=== PATIENT | female | born 1990 ===

== ENCOUNTER → 2018-11-19 | Outpatient (CLI) | payer OTHER ==
[~2018-11-19] MED LIST: Bactrim Ds Tab1 EACH PO; Bentyl20 MG PO; EXPECTA PRENAT1 EACH; IBUP800 PO
== END | disposition home or self-care (01) ==
LOC: LAB 09:36 → LAB SHORT 09:36
DX: Z34.80 Encounter for supervision of other normal pregnancy, unspecified trimester (principal)
CPT/HCPCS: 87081; 87147; 87184; 87653

== ENCOUNTER 2018-12-10 08:04 | Inpatient (IN) | payer OTHER ==
[~2018-12-10] VITALS: Ht 160 cm; Wt 118.8 kg
[~2018-12-10 08:04] MED LIST changes: -EXPECTA PRENAT1 EACH; -IBUP800 PO
[2018-12-10] MEDS ORDERED: EXPECTA PRENAT1 EACH (09:14)
[2018-12-10 09:15] LABS: BASOPHILS ABSOLUTE AUTO 0.02 K/mm3 (0.00-0.23); BASOPHILS PERCENT AUTO 0 % (0-2); EOSINOPHILS ABSOLUTE AUTO 0.06 K/mm3 (0.00-0.68); EOSINOPHILS PERCENT AUTO 1 % (0-6); Hematocrit 36.6 % (33.0-51.0); Hemoglobin 11.7 g/dL (11.5-16.0); IMMATURE GRAN ABSOLUTE AUTO 0.06 K/mm3 (0.00-0.10); IMMATURE GRAN PERCENT AUTO 1 % (0-1); LYMPHOCYTES ABSOLUTE AUTO 1.41 K/mm3 (0.84-5.20); LYMPHOCYTES PERCENT AUTO 15 % (21-46); MONOCYTES ABSOLUTE AUTO 0.65 K/mm3 (0.16-1.47); MONOCYTES PERCENT AUTO 7 % (4-13); Mean Corpuscular Volume 84 fL (80-100); NEUTROPHILS ABSOLUTE AUTO 7.33 K/mm3 (1.96-9.15); NEUTROPHILS PERCENT AUTO 77 % (41-73); Platelet Count 219 K/mm3 (150-400); RDW Coefficient Variation 13.5 % (11.7-14.2); RDW Standard Deviation 40.8 fL (35.1-46.3); Red Blood Cell Count 4.34 M/mm3 (3.80-5.20); White Blood Cell Count 9.53 K/mm3 (4.00-11.30)
--- NOTE | 2018-12-10 17:58 | NUR ---
ASSUMED CARE [id number]. PT RESTING.
[2018-12-11 06:12] LABS: Hematocrit 33.8 % (33.0-51.0); Mean Corpuscular HGB 27.3 pg (26.0-34.0); Mean Corpuscular HGB Conc 32.5 g/dL (31.5-36.5); Mean Corpuscular Volume 84 fL (80-100); Mean Platelet Volume 11.6 fL (9.1-12.4); Platelet Count 194 K/mm3 (150-400); RDW Coefficient Variation 13.5 % (11.7-14.2); Red Blood Cell Count 4.03 M/mm3 (3.80-5.20); White Blood Cell Count 9.71 K/mm3 (4.00-11.30)
[2018-12-11] MEDS ORDERED: IBUP800 PO (13:48)
--- NOTE | 2018-12-11 18:26 | NUR ---
DISCHARGE PT VERBALIZES UNDERSTANDING OF DISCHARGE INSTRUCTIONS AND FOLLOW UP APPOINTMENTS. NO QUESTIONS OR CONCERNS. STABLE.
== END 2018-12-11 18:58 | disposition home or self-care (01) | DRG 807 ==
LOC: OBS 08:04 → BC 08:05 → OBS 08:46 → BC 08:47
PROVIDERS: ADMIT Obstetrics & Gynecology
PROC: 10E0XZZ Delivery of Products of Conception, External Approach (ICD-10-PCS; principal; 2018-12-10)
PROC: 3E0R3BZ Introduction of Anesthetic Agent into Spinal Canal, Percutaneous Approach (ICD-10-PCS; 2018-12-10)
PROC: 0HQ9XZZ Repair Perineum Skin, External Approach (ICD-10-PCS; 2018-12-10)
PROC: 10907ZC Drainage of Amniotic Fluid, Therapeutic from Products of Conception, Via Natural or Artificial Opening (ICD-10-PCS; 2018-12-10)
PROC: 10H07YZ Insertion of Other Device into Products of Conception, Via Natural or Artificial Opening (ICD-10-PCS; 2018-12-10)
DX: O99.824 Streptococcus B carrier state complicating childbirth (principal); Z37.0 Single live birth; O99.214 Obesity complicating childbirth; Z3A.39 39 weeks gestation of pregnancy; O70.0 First degree perineal laceration during delivery; E66.01 Morbid (severe) obesity due to excess calories
CPT/HCPCS: 36415; 51702; 85025; 85027; J0690; J1885; J2590; J3010; J7120

== ENCOUNTER → 2019-09-08 | Outpatient (CLI) | payer OTHER ==
[~2019-09-08] MED LIST changes: +EXPECTA PRENAT1 EACH; +IBUP800 PO
[2019-09-10 18:06] LABS: CHLAMYDIA TRACHOMATIS, NAA Negative (Negative); NEISSERIA GONORRHOEAE, NAA Negative (Negative)
== END | disposition home or self-care (01) ==
LOC: LAB 09:50 → LAB SHORT 09:50
PROVIDERS: Obstetrics & Gynecology
DX: Z00.00 Encounter for general adult medical examination without abnormal findings (principal)
CPT/HCPCS: 87491; 87591; G0123

== ENCOUNTER → 2020-02-22 | Outpatient (CLI) | payer OTHER ==
[2020-02-22 18:58] LABS: Bilirubin, Urine Neg (Neg); Blood, Urine 5+ (Neg); Glucose Qualitative, Urine Neg (Neg); Ketones, Urine Neg (Neg); Leukocyte Esterase, Urine 1+ (Neg); Nitrite, Urine Neg (Neg); Protein, Urine Neg (Neg); Urobilinogen, Urine NORM (Normal)
[2020-02-22 19:08] LABS: Appearance, Urine Hazy (Clear); Color, Urine Yellow (P-Yellow)
[2020-02-22 19:10] LABS: Bacteria Mod /hpf; Red Blood Cells, Urine 25-50 /hpf (0-2); Squamous Epithelial Cells Few /hpf (Few); White Blood Cells, Urine 0-2 /hpf (0-5)
[2020-02-22 19:11] LABS: Amorphous Mod (0-Heavy)
== END | disposition home or self-care (01) ==
LOC: LAB 15:45 → LAB SHORT 15:45
PROVIDERS: Obstetrics & Gynecology
DX: O99.213 Obesity complicating pregnancy, third trimester (principal)
CPT/HCPCS: 81001; 87077; 87081; 87086; 87186; 87653

== ENCOUNTER 2020-03-04 05:43 | Inpatient (IN) | payer OTHER ==
[~2020-03-04] VITALS: Ht 160 cm; Wt 125.7 kg
[2020-03-04] MEDS ORDERED: PRENATAL TABLE1 EAC2 PO (05:51)
[2020-03-04] MEDS ORDERED: ASPI81CH PO (05:52)
[2020-03-04 06:23] LABS: BASOPHILS ABSOLUTE AUTO 0.03 K/mm3 (0.00-0.23); BASOPHILS PERCENT AUTO 0 % (0-2); EOSINOPHILS ABSOLUTE AUTO 0.21 K/mm3 (0.00-0.68); EOSINOPHILS PERCENT AUTO 2 % (0-6); Hematocrit 36.1 % (33.0-51.0); Hemoglobin 11.8 g/dL (11.5-16.0); IMMATURE GRAN ABSOLUTE AUTO 0.06 K/mm3 (0.00-0.10); IMMATURE GRAN PERCENT AUTO 1 % (0-1); LYMPHOCYTES ABSOLUTE AUTO 1.58 K/mm3 (0.84-5.20); LYMPHOCYTES PERCENT AUTO 17 % (21-46); MONOCYTES ABSOLUTE AUTO 0.62 K/mm3 (0.16-1.47); MONOCYTES PERCENT AUTO 7 % (4-13); Mean Corpuscular HGB Conc 32.7 g/dL (31.5-36.5); Mean Corpuscular Volume 86 fL (80-100); Mean Platelet Volume 12.4 fL (9.1-12.4); NEUTROPHILS ABSOLUTE AUTO 6.85 K/mm3 (1.96-9.15); NEUTROPHILS PERCENT AUTO 73 % (41-73); Platelet Count 223 K/mm3 (150-400); RDW Coefficient Variation 13.8 % (11.7-14.2); RDW Standard Deviation 42.7 fL (35.1-46.3); Red Blood Cell Count 4.21 M/mm3 (3.80-5.20); White Blood Cell Count 9.35 K/mm3 (4.00-11.30)
[2020-03-04 06:40] LABS: Alanine Aminotransfer (ALT/SGP 16 U/L (12-78); Albumin, Blood 2.4 g/dL (3.4-5.0); Albumin/Globulin Ratio 0.6 (0.8-1.8); Alk Phos 125 U/L (50-136); Anion Gap 8 mmol/L (6-16); Aspartate Aminotrans (AST/SGOT 19 U/L (12-37); Bilirubin, Total 0.3 mg/dL (0.1-1.0); Blood Urea Nitrogen 6 mg/dL (8-24); Bun/Creatinine Ratio 12.2 (12.0-20.0); CO2, Blood 21 mmol/L (21-32); Calcium, Blood 8.6 mg/dL (8.5-10.1); Chloride, Blood 110 mmol/L (98-108); Creatinine, Blood 0.49 mg/dL (0.40-1.00); Globulin, Blood 4.1 g/dL (2.2-4.0); Glomerular Filtration Rate >60 (60-); Glucose, Blood 135 mg/dL (70-99); Potassium, Blood 3.8 mmol/L (3.5-5.5); Sodium, Blood 139 mmol/L (136-145); Total Protein, Blood 6.5 g/dL (6.4-8.2)
[2020-03-05] MEDS ORDERED: LABE100 PO (17:07)
--- NOTE | 2020-03-06 12:02 | NUR ---
DISCHARGE INSTRUCTIONS, WRITTEN AND VERBAL, GIVEN TO PT AND RADHA. ANSWERED ALL QUESTIONS AND CONCERNS. IV DISCONTINUED. WRITTEN PRESCRIPTIONS HANDED TO PT. FOLLOW UP APPOINTMENTS SCHEDULED. PT IS PACKING UP BELONGINGS AND IS READY FOR DISCHARGE. TO BE DRIVEN HOME BY RADHA.
== END 2020-03-06 12:55 | disposition home or self-care (01) | DRG 807 ==
LOC: BC 05:43
PROVIDERS: ADMIT Obstetrics & Gynecology
PROC: 10E0XZZ Delivery of Products of Conception, External Approach (ICD-10-PCS; principal; 2020-03-04)
PROC: 3E033VJ Introduction of Other Hormone into Peripheral Vein, Percutaneous Approach (ICD-10-PCS; 2020-03-04)
PROC: 10907ZC Drainage of Amniotic Fluid, Therapeutic from Products of Conception, Via Natural or Artificial Opening (ICD-10-PCS; 2020-03-04)
PROC: 10H07YZ Insertion of Other Device into Products of Conception, Via Natural or Artificial Opening (ICD-10-PCS; 2020-03-04)
PROC: 3E0R3BZ Introduction of Anesthetic Agent into Spinal Canal, Percutaneous Approach (ICD-10-PCS; 2020-03-04)
DX: O13.4 Gestational [pregnancy-induced] hypertension without significant proteinuria, complicating childbirth (principal); Z37.0 Single live birth; O99.214 Obesity complicating childbirth; E66.01 Morbid (severe) obesity due to excess calories; Z3A.37 37 weeks gestation of pregnancy
CPT/HCPCS: 36415; 51702; 80053; 85025; 86850; 86900; 86901; A9270; J1885; J1940; J2001; J2210; J2590; J3010; J7120

== ENCOUNTER 2020-05-15 15:29 | Emergency (ER) | payer OTHER ==
[~2020-05-15] VITALS: Ht 160 cm; Wt 124.7 kg
[~2020-05-15 15:29] MED LIST changes: +ASPI81CH PO; +LABE100 PO; +PRENATAL TABLE1 EAC2 PO
[2020-05-15] MEDS ORDERED: KEFLEX500 MG PO (15:42)
[2020-05-15] MEDS ORDERED: Bactrim Ds Tab1 EACH PO (15:42)
== END 2020-05-15 15:53 | disposition home or self-care (01) ==
LOC: ER 15:29
DX: L03.116 Cellulitis of left lower limb (principal)
CPT/HCPCS: 99283; A9270-GY

== ENCOUNTER → 2022-04-11 | Outpatient (CLI) | payer OTHER ==
[~2022-04-11] MED LIST changes: +KEFLEX500 MG PO
== END | disposition home or self-care (01) ==
LOC: LAB SHORT 13:41 → LAB 13:41
PROVIDERS: Obstetrics & Gynecology
DX: Z01.419 Encounter for gynecological examination (general) (routine) without abnormal findings (principal)
CPT/HCPCS: G0123

== ENCOUNTER 2023-03-28 09:45 | Inpatient (IN) | payer OTHER ==
[2023-03-28] VITALS (31 sets, daily range): BP systolic 119–166; BP diastolic 59–104
[~2023-03-28] VITALS: Ht 160 cm; Wt 133.0 kg
[2023-03-28 12:58] LABS: BASOPHILS ABSOLUTE AUTO 0.04 K/mm3 (0.00-0.23); BASOPHILS PERCENT AUTO 0 % (0-2); EOSINOPHILS ABSOLUTE AUTO 0.12 K/mm3 (0.00-0.68); EOSINOPHILS PERCENT AUTO 1 % (0-6); Hematocrit 34.8 % (33.0-51.0); Hemoglobin 11.8 g/dL (11.5-16.0); IMMATURE GRAN ABSOLUTE AUTO 0.05 K/mm3 (0.00-0.10); IMMATURE GRAN PERCENT AUTO 1 % (0-1); LYMPHOCYTES ABSOLUTE AUTO 1.16 K/mm3 (0.84-5.20); LYMPHOCYTES PERCENT AUTO 13 % (21-46); MONOCYTES PERCENT AUTO 7 % (4-13); Mean Corpuscular HGB 28.4 pg (26.0-34.0); Mean Corpuscular HGB Conc 33.9 g/dL (31.5-36.5); Mean Corpuscular Volume 84 fL (80-100); NEUTROPHILS ABSOLUTE AUTO 7.01 K/mm3 (1.96-9.15); NEUTROPHILS PERCENT AUTO 78 % (41-73); Platelet Count 250 K/mm3 (150-400); RDW Coefficient Variation 12.9 % (11.7-14.2); RDW Standard Deviation 38.6 fL (35.1-46.3); Red Blood Cell Count 4.15 M/mm3 (3.80-5.20); White Blood Cell Count 8.98 K/mm3 (4.00-11.30)
[2023-03-28 13:06] LABS: Albumin, Blood 2.6 g/dL (3.4-5.0); Albumin/Globulin Ratio 0.6 (0.8-1.8); Bilirubin, Total 0.3 mg/dL (0.1-1.0); Bun/Creatinine Ratio 15.7 (12.0-20.0); Creatinine, Blood 0.45 mg/dL (0.40-1.00); Globulin, Blood 4.6 g/dL (2.2-4.0); Potassium, Blood 3.6 mmol/L (3.5-5.5); Total Protein, Blood 7.2 g/dL (6.4-8.2)
[2023-03-28 14:06] LABS: Creatinine, Urine Random 68.5 mg/dL (27.00-270.00); Protein, Urine Random 18.4 mg/dL (0.0-11.9); Protein/Creat Ratio, Ur Random 0.3
[2023-03-29] VITALS (27 sets, daily range): BP systolic 106–177; BP diastolic 57–108
[2023-03-30 03:38] VITALS: BP 133/76
[2023-03-30 08:31] VITALS: BP 141/77
[2023-03-30] MEDS ORDERED: IBUP800 PO (09:43)
[2023-03-30] MEDS ORDERED: MASOPHEN500 M1 PO (09:44)
[2023-03-30] MEDS ORDERED: DOCU100 PO (09:44)
[2023-03-30 11:15] VITALS: BP 140/86
[2023-03-30 15:06] VITALS: BP 142/83
== END 2023-03-30 15:15 | disposition home or self-care (01) | DRG 807 ==
LOC: BC 09:45 → OBS 09:45 → BC 10:18
PROVIDERS: ADMIT Obstetrics & Gynecology
PROC: 10E0XZZ Delivery of Products of Conception, External Approach (ICD-10-PCS; principal; 2023-03-29)
PROC: 3E0R3BZ Introduction of Anesthetic Agent into Spinal Canal, Percutaneous Approach (ICD-10-PCS; 2023-03-29)
PROC: 00HU33Z Insertion of Infusion Device into Spinal Canal, Percutaneous Approach (ICD-10-PCS; 2023-03-29)
PROC: 10907ZC Drainage of Amniotic Fluid, Therapeutic from Products of Conception, Via Natural or Artificial Opening (ICD-10-PCS; 2023-03-29)
DX: O14.04 Mild to moderate pre-eclampsia, complicating childbirth (principal); Z37.0 Single live birth; O99.214 Obesity complicating childbirth; O13.4 Gestational [pregnancy-induced] hypertension without significant proteinuria, complicating childbirth; Z3A.37 37 weeks gestation of pregnancy; Z90.49 Acquired absence of other specified parts of digestive tract; Z88.0 Allergy status to penicillin; Z79.82 Long term (current) use of aspirin; Z79.899 Other long term (current) drug therapy
CPT/HCPCS: 36415; 51702; 80053; 82570; 84156; 85025; 86850; 86900; 86901; A9270; J0690; J1885; J2590; J3010; J7120

== ENCOUNTER → 2024-06-02 | Outpatient (CLI) | payer OTHER ==
[~2024-06-02] MED LIST changes: +Aspir 8181 MG PO; +Calcium Acetat667 MG; +DOCU100 PO; +FERSU300; +MASOPHEN500 M1 PO; +METFORMIN HCL500 MG PO
[2024-06-02 16:35] LABS: Source, Urine Clean Catch
[2024-06-02 18:44] LABS: Appearance, Urine Hazy (Clear); Bilirubin, Urine Neg (Neg); Blood, Urine 2+ (Neg); Color, Urine Yellow (P-Yellow); Glucose Qualitative, Urine Neg (Neg); Ketones, Urine 1+ (Neg); Leukocyte Esterase, Urine 2+ (Neg); Nitrite, Urine Neg (Neg); Protein, Urine 1+ (Neg); Specific Gravity, Urine 1.025 (1.003-1.022); Urobilinogen, Urine NORM (Normal)
[2024-06-02 18:50] LABS: Bacteria Many /hpf; Squamous Epithelial Cells Mod /hpf (Few)
[2024-06-02 18:51] LABS: Calcium Oxalate Crystals Rare /hpf
== END ==
LOC: LAB 16:33 → LAB SHORT 16:33
PROVIDERS: Obstetrics & Gynecology
DX: R31.9 Hematuria, unspecified (principal)
CPT/HCPCS: 81001; 87086

== ENCOUNTER → 2024-06-08 | Outpatient (CLI) | payer OTHER | END | disposition home or self-care (01) | LOC: LAB 15:03 → LAB SHORT 15:03 | DX: O09.93 Supervision of high risk pregnancy, unspecified, third trimester (principal); O99.213 Obesity complicating pregnancy, third trimester | CPT/HCPCS: 87081; 87150 ==

== ENCOUNTER 2024-06-16 07:31 | Inpatient (IN) | payer OTHER ==
[2024-06-16] VITALS (22 sets, daily range): BP systolic 133–153; BP diastolic 67–95
[~2024-06-16] VITALS: Ht 160 cm; Wt 132.8 kg
[~2024-06-16 07:31] MED LIST changes: -Aspir 8181 MG PO; -Calcium Acetat667 MG; -FERSU300; -METFORMIN HCL500 MG PO
[2024-06-16] MEDS ORDERED: Lactated Ringer's 1,000 ML IV SCH ×4 (07:40→21:50)
[2024-06-16] MEDS ORDERED: Methylergonovine Maleate 0.2MG / ML 1ML Amp IM PRN (07:40)
[2024-06-16] MEDS ORDERED: FentaNYL 2mcg/ml-Bup 0.1% Epd 250 ML EPI PRN (07:40)
[2024-06-16] MEDS ORDERED: Carboprost Tromethamine 250 MCG/ML 1ML Amp IM SCH (07:40)
[2024-06-16] MEDS ORDERED: Misoprostol 200 MCG Tab XX SCH (07:40)
[2024-06-16] MEDS ORDERED: Calcium Carbonate 500 MG Tab Chew PO SCH (07:40)
[2024-06-16] MEDS ORDERED: Oxytocin 10 Unit / ML Vial IM PRN (07:40)
[2024-06-16] MEDS ORDERED: ePHEDrine Sulfate 50 MG/ML 1ML Injection XX PRN (07:40)
[2024-06-16] MEDS ORDERED: Misoprostol 200 MCG Tab PR PRN ×2 (07:40→22:00)
[2024-06-16] MEDS ORDERED: Ondansetron HCl 2 MG / ML 2ML Vial IV PRN (07:40)
[2024-06-16] MEDS ORDERED: Acetaminophen 500 MG Tab PO PRN (07:40)
[2024-06-16] MEDS ORDERED: OXYTOCIN/RINGER'S LACTATE 500 ML IV SCH ×3 (07:40→21:55)
[2024-06-16] MEDS ORDERED: Tranexamic Acid 100 ML IV SCH (07:50)
[2024-06-16] MEDS ORDERED: FERSU300 (07:56)
[2024-06-16] MEDS ORDERED: Aspir 8181 MG PO (07:56)
[2024-06-16] MEDS ORDERED: Calcium Acetat667 MG (07:56)
[2024-06-16] MEDS ORDERED: METFORMIN HCL500 MG PO (07:57)
[2024-06-16 08:00] LABS: BASOPHILS ABSOLUTE AUTO 0.02 K/mm3 (0.00-0.23); BASOPHILS PERCENT AUTO 1 % (0-2); EOSINOPHILS ABSOLUTE AUTO 0.06 K/mm3 (0.00-0.68); EOSINOPHILS PERCENT AUTO 2 % (0-6); Hemoglobin 10.3 g/dL (11.5-16.0); IMMATURE GRAN ABSOLUTE AUTO 0.01 K/mm3 (0.00-0.10); IMMATURE GRAN PERCENT AUTO 0 % (0-1); LYMPHOCYTES ABSOLUTE AUTO 0.68 K/mm3 (0.84-5.20); LYMPHOCYTES PERCENT AUTO 21 % (21-46); MONOCYTES ABSOLUTE AUTO 0.48 K/mm3 (0.16-1.47); MONOCYTES PERCENT AUTO 15 % (4-13); Mean Corpuscular HGB 25.1 pg (26.0-34.0); Mean Corpuscular HGB Conc 32.2 g/dL (31.5-36.5); Mean Corpuscular Volume 78 fL (80-100); Mean Platelet Volume 11.9 fL (9.1-12.4); NEUTROPHILS ABSOLUTE AUTO 1.93 K/mm3 (1.96-9.15); NEUTROPHILS PERCENT AUTO 61 % (41-73); Platelet Count 220 K/mm3 (150-400); RDW Coefficient Variation 14.1 % (11.7-14.2); RDW Standard Deviation 39.9 fL (35.1-46.3); Red Blood Cell Count 4.11 M/mm3 (3.80-5.20); White Blood Cell Count 3.18 K/mm3 (4.00-11.30)
[2024-06-16] MEDS ORDERED: Benzocaine Topical Anesthetic Spray 60GM TOP PRN (21:55)
[2024-06-16] MEDS ORDERED: Carboprost Tromethamine 250 MCG/ML 1ML Amp IM PRN (21:55)
[2024-06-16] MEDS ORDERED: Ibuprofen 400 MG Tab PO PRN (21:55)
[2024-06-16] MEDS ORDERED: Witch Hazel/Glycerin PADS TOP PRN (21:55)
[2024-06-16] MEDS ORDERED: Ketorolac Tromethamine 30mg Vial IV PRN (22:00)
[2024-06-16] MEDS ORDERED: Ketorolac Tromethamine 30mg Vial IV ONE (22:00)
[2024-06-16] MEDS ORDERED: Docusate Sodium 100 MG Cap PO PRN (22:00)
[2024-06-16] MEDS ORDERED: Lanolin Cream TOP PRN (22:00)
--- NOTE | 2024-06-17 01:27 | NUR ---
AT 0020 - PT SAT AT THE EDGE OF THE BED, DENIED ANY DIZZINESS OR LIGHTHEADEDNESS. EPIDURAL CATHETER REMOVED BY SHOP ESTIMATOR, TIP INTACT. Anette FRYE RN IN ROOM TO ASSIST WITH FIRST AMBULATION. PT STOOD AT THE BEDSIDE BUT REPORTED FEELING WEAK ON THE LEFT LEG. SHOP ESTIMATOR OFFERED TO LET PT REST FOR A BIT LONGER UNTIL LEFT LEG WAS FEELING STRONGER OR TO UTILIZE A WHEELCHAIR TO GO TO THE WASHROOM. PT AGREEABLE TO USING WHEELCHAIR. PT PIVOTED INTO WHEELCHAIR WITH ASSISTANCE FROM TWO RNS. PT PIVOTED ONTO THE TOILET. LEYDI MEDS AND LEYDI BOTTLE PROVIDED WITH INSTRUCTIONS. PT UNABLE TO VOID AT THIS TIME. PT AWARE TO VOID BY 0330 AND NOTIFY STAFF AFTERWARDS. PT REPORTED LEFT LEG FEELING STRONGER AND WANTING TO AMBULATE BACK TO BED. PT AMBULATED BACK INTO BED WITH STANDBY ASSIST FROM TWO RNS. PT AWARE SHE MAY AMBULATE FREELY BUT TO CALL FOR ASSISTANCE IF UNSURE OR FEELING WEAK
--- NOTE | 2024-06-17 02:35 | NUR ---
PT VOIDED AND REPORTS FEELING LIKE SHE EMPTIED HER BLADDER
[2024-06-17 03:33] VITALS: BP 148/78
[2024-06-17 07:44] VITALS: BP 124/72
[2024-06-17] MEDS ORDERED: Prenatal Vit/FE Fumarate/FA 1 Tab PO SCH (09:00)
[2024-06-17 13:43] VITALS: BP 144/80
--- NOTE | 2024-06-17 15:23 | NUR ---
Patient sleeping. FOB HOLDING BABY WHILE PATIENT SLEEPING.
[2024-06-17 16:52] VITALS: BP 142/74
--- NOTE | 2024-06-17 17:43 | NUR ---
preceptor yajaira agrees with mario mtzgovernment operations consultant,
[2024-06-17 21:11] VITALS: BP 138/66
--- NOTE | 2024-06-17 23:13 | NUR ---
DISCHARGE TEACHING COMPLETE. ALL QUESTIONS ANSWERED. PT AWARE OF EMERGENT SITUATIONS AND WHEN TO SEEK MEDICAL ATTENTION. PT AWARE OF ALL FOLLOW UP APPOINTMENTS FOR SELF AND BABE. DISCHARGE SUMMARY, FOLDER, NBS ENVELOPE, AND HEARING SCREEN SHEET PROVIDED. BABY BANDS MATCHED AND VERIFIED WITH MOTHER; SAME REMOVED. SECURITY SENSOR ON BABE REMOVED. MENU PLANNER ESCORTED PT, PARTNER, AND BABE IN A CAR SEAT OFF UNIT AT 2310. MENU PLANNER WATCHED CAR SEAT BE PLACED INTO BASE IN THE VEHICLE.
== END 2024-06-17 23:15 | disposition home or self-care (01) | DRG 807 ==
LOC: OBS 07:31 → BC 07:33 → OBS 07:39 → BC 07:41
PROVIDERS: ADMIT Obstetrics & Gynecology
PROC: 10E0XZZ Delivery of Products of Conception, External Approach (ICD-10-PCS; principal; 2024-06-16)
PROC: 3E0R3BZ Introduction of Anesthetic Agent into Spinal Canal, Percutaneous Approach (ICD-10-PCS; 2024-06-16)
PROC: 00HU33Z Insertion of Infusion Device into Spinal Canal, Percutaneous Approach (ICD-10-PCS; 2024-06-16)
PROC: 10907ZC Drainage of Amniotic Fluid, Therapeutic from Products of Conception, Via Natural or Artificial Opening (ICD-10-PCS; 2024-06-16)
PROC: 30233N1 Transfusion of Nonautologous Red Blood Cells into Peripheral Vein, Percutaneous Approach (ICD-10-PCS; 2024-06-16)
DX: O24.425 Gestational diabetes mellitus in childbirth, controlled by oral hypoglycemic drugs (principal); Z37.0 Single live birth; Z3A.37 37 weeks gestation of pregnancy; O13.4 Gestational [pregnancy-induced] hypertension without significant proteinuria, complicating childbirth; O99.214 Obesity complicating childbirth
CPT/HCPCS: 36415; 51702; 82947; 85025; 86850; 86900; 86901; 86923; A9270; J1885; J2590; J7120